=== PATIENT | female | born 1985 | race Caucasian/White ===

== ENCOUNTER 2018-10-30 09:41 | Emergency (ER) | payer MEDICAID ==
[~2018-10-30] VITALS: Ht 165.1 cm; Wt 67.6 kg
[~2018-10-30 09:41] MED LIST: AZIT250T6 PO; GENT5DRO3 LEFTEYE; PRED20TA PO; PROM118S5 PO
[2018-10-30] MEDS ORDERED: ONDANSETRON ODT 4 MG TAB.RAPDIS ONE (09:50)
[2018-10-30] MEDS ORDERED: ONDANSETRON ODT 4 MG TAB.RAPDIS PO ONE ×2 (10:00)
--- NOTE | 2018-10-30 10:17 | PHYS DOC ---
Past History Past Medical History: Anxiety, Asthma, Bipolar, Depression Past Surgical History: Other Additional Past Surgical Histo: D&C Smoking: Cigarettes Alcohol Use: None Drug Use: None Adult General Chief Complaint Chief Complaint: VOMITING IN HPI HPI Patient is a 32-year-old female presents with nausea and vomiting that began at approximately 3:00 this morning. Patient is presently 16 weeks . She ran out of her Zofran 2 days ago. She is also supposed to be taking antibiotics for urinary tract infection but has not yet these up. She denies any fever or dysuria. Denies any back or flank pain. No blood in the emesis.[] Review of Systems Review of Systems Constitutional: Denies fever or chills [] Eyes: Denies change in visual acuity, redness, or eye pain [] HENT: Denies nasal congestion or sore throat [] Respiratory: Denies cough or shortness of breath [] Cardiovascular: No chest pain or palpitations[] GI: Denies diarrhea , see history of present illness[] : Denies dysuria or hematuria [] Musculoskeletal: Denies back pain or joint pain [] Integument: Denies rash or skin lesions [] Neurologic: Denies headache, focal weakness or sensory changes [] Endocrine: Denies polyuria or polydipsia [] All other systems were reviewed and found to be within normal limits, except as documented in this note. Current Medications Current Medications Current Medications Medications (Trade) Dose Ordered Sig/[facility] Start Time Stop Time Status Last Admin Dose Admin Ondansetron HCl (Zofran Odt) 4 mg 1X ONCE 10/30/18 10:00 10/30/18 10:02 DC Allergies Allergies Allergies Coded Allergies Type Severity Reaction Last Updated Verified No Known Drug Allergies 05/23/13 No Physical Exam Physical Exam Constitutional: Well developed, well nourished, uncomfortable, actively retching as I enter the room, non-toxic appearance. [] HENT: Normocephalic, atraumatic, bilateral external ears normal, oropharynx moist, no oral exudates, nose normal. [] Eyes: PERRLA, EOMI, conjunctiva normal, no discharge. [] Neck: Normal range of motion, no tenderness, supple, no stridor. [] Cardiovascular:Heart rate regular rhythm, no murmur [] Lungs & Thorax: Bilateral breath sounds clear to auscultation [] Abdomen: Bowel sounds normal, soft, no tenderness, no masses, no pulsatile masses. [] Skin: Warm, dry, no erythema, no rash. [] Back: No tenderness, no CVA tenderness. [] Extremities: No tenderness, no cyanosis, no clubbing, ROM intact, no edema. [] Neurologic: Alert and oriented X 3, normal motor function, normal sensory function, no focal deficits noted. [] Psychologic: Affect normal, judgement normal, mood normal. [] Current Patient Data Vital Signs Vital Signs Date Time Temp Pulse Resp B/P (MAP) Pulse Ox O2 Delivery O2 Flow Rate FiO2 10/30/18 09:50 98.3 116 20 99 Room Air EKG EKG [] Radiology/Procedures Radiology/Procedures [] Course & Med Decision Making Course & Med Decision Making Pertinent Labs and Imaging studies reviewed. (See chart for details) ED course: Patient arrived, was placed in bed, and tolerated exam well. She was given an ODT Zofran which improved her nausea and vomiting. She was oral intake tolerant. heart tones were obtained. She was able to provide a urine sample. Findings were discussed with the patient who voiced understanding. All questions were answered. She was discharged in improved condition. Medical decision making: No evidence of intractable nausea or vomiting. Patient has some bacteria in the urine and will place her on antibiotics are safe in , and will continue outpatient antiemetics therapy.[] Dragon Disclaimer Dragon Disclaimer This electronic medical record was generated, in whole or in part, using a voice recognition dictation system. Departure Departure: Impression: Primary Impression: Nausea and vomiting during Additional Impression: Bacteria in urine Disposition: 01 HOME, SELF-CARE Condition: IMPROVED Referrals: DILLON OLSON MD (PCP) Follow-up in 2 days Patient Instructions: Asymptomatic Bacteriuria, Female, Nausea and Vomiting Additional Instructions: Drink plenty of fluids, frequent small sips. No fatty foods, no milk, and no pepper for the next 48 hours. For the next 48 hours eat a diet rich in carbohydrates with foods such as bananas, rice, applesauce, and toast. Follow-up with your regular doctor in 2 days. Return to the ER if unable to tolerate liquids, blood in the emesis, or any other concerns. Scripts Ondansetron Hcl (ZOFRAN) 4 Mg Tablet 1 TAB PO Q6HRS for nausea or vomiting, #20 TAB Prov: PEACE STEPHENS DO 10/30/18 Cephalexin (KEFLEX) 500 Mg Capsule 500 MG PO TID for bacteruria for 7 Days, #21 CAP Prov: PEACE STEPHENS DO 10/30/18 Problem Qualifiers PEACE STEPHENS DO Oct 30, 2018 10:17
[2018-10-30 10:36] LABS: COLOR,URINE YELLOW
[2018-10-30 10:37] LABS: AMORPHOUS SEDIMENT,UR PRESENT /HPF; BACTERIA,URINE FEW /HPF (0-FEW); BILIRUBIN,URINE NEG (NEG); CLARITY,URINE CLOUDY; GLUCOSE,URINE NEG (NEG); NITRITE,URINE NEG (NEG); SQUAMOUS EPITHELIAL CELL,UR FEW /LPF; UROBILINOGEN,URINE 0.2 mg/dL (0.2 mg/dL)
[2018-10-30] MEDS ORDERED: CEPH-264 PO (10:43)
[2018-10-30] MEDS ORDERED: ONDA4TAB7 PO (10:43)
[2018-10-30 10:47] VITALS: BP 127/72
== END 2018-10-30 10:47 | disposition home or self-care (01) ==
LOC: ER 09:41
DX: O21.9 Vomiting of pregnancy, unspecified (principal); O99.342 Other mental disorders complicating pregnancy, second trimester; O99.512 Diseases of the respiratory system complicating pregnancy, second trimester; F41.9 Anxiety disorder, unspecified; F31.9 Bipolar disorder, unspecified; O99.332 Smoking (tobacco) complicating pregnancy, second trimester; Z3A.16 16 weeks gestation of pregnancy
CPT/HCPCS: 81001; 99283; Q0162

== ENCOUNTER 2018-12-05 16:51 | Emergency (ER) | payer MEDICAID ==
[~2018-12-05 16:51] MED LIST changes: +CEPH-264 PO; +ONDA4TAB7 PO
[2018-12-05] MEDS ORDERED: IV NORMAL SALINE 1,000ML 1,000 ML IV ONE (17:30)
[2018-12-05] MEDS ORDERED: ONDANSETRON PF 4 MG/2 ML VIAL. IV ONE (17:30)
[2018-12-05] MEDS ORDERED: PROCHLORPERAZINE 10 MG/2 ML VIAL. IV ONE (17:45)
[2018-12-05] MEDS ORDERED: diphenhydrAMINE 50 MG/ML VIAL IVP ONE (17:45)
[2018-12-05 17:56] LABS: BASO # 0.1 x10^3/uL (0.0-0.2); BASO % 1 % (0-3); EOS % 0 % (0-3); HEMATOCRIT 37.5 % (36.0-47.0); HEMOGLOBIN 13.1 g/dL (12.0-15.5); LYMPH # 2.5 x10^3/uL (1.0-4.8); LYMPH % 14 % (24-48); MEAN CORPUSCULAR HEMOGLOBIN 33 pg (25-35); MEAN CORPUSCULAR HGB CONC 35 g/dL (31-37); MEAN CORPUSCULAR VOLUME 94 fL (79-100); MONO # 0.7 x10^3/uL (0.0-1.1); MONO % 4 % (0-9); NEUT # 14.3 x10^3uL (1.8-7.7); NEUT % 81 % (31-73); PLATELET COUNT 308 x10^3/uL (140-400); RED CELL DISTRIBUTION WIDTH 13.1 % (11.5-14.5); WHITE BLOOD COUNT 17.6 x10^3/uL (4.0-11.0)
[2018-12-05 18:13] LABS: BILIRUBIN,URINE SMALL (NEG); CLARITY,URINE HAZY; COLOR,URINE AMBER; GLUCOSE,URINE NEG (NEG)
[2018-12-05 18:14] LABS: BACTERIA,URINE FEW /HPF (0-FEW); NITRITE,URINE NEG (NEG); SQUAMOUS EPITHELIAL CELL,UR FEW /LPF; UROBILINOGEN,URINE 1 mg/dL (0.2 mg/dL)
[2018-12-05 18:15] LABS: GRANULAR CASTS,URINE FEW /HPF; HYALINE CASTS, URINE OCC /HPF
[2018-12-05 18:20] LABS: AMPHETAMINE/METHAMPHETAMINE NEG (NEG); BARBITURATES NEG (NEG); BENZODIAZEPINES NEG (NEG); CANNABINOIDS NEG (NEG); COCAINE NEG (NEG); METHADONE NEG (NEG); OPIATES NEG (NEG); PHENCYCLIDINE NEG (NEG)
[2018-12-05 18:53] LABS: ALBUMIN 3.7 g/dL (3.4-5.0); ALBUMIN/GLOBULIN RATIO 1.1 (1.0-1.7); CALCIUM 8.6 mg/dL (8.5-10.1); CREATININE 0.6 mg/dL (0.6-1.0); GFR 116.6; POTASSIUM 3.2 mmol/L (3.5-5.1); TOTAL BILIRUBIN 0.5 mg/dL (0.2-1.0); TOTAL PROTEIN 7.1 g/dL (6.4-8.2)
[2018-12-05] MEDS ORDERED: cefTRIAXone SODIUM 1 GM VIAL ONE (19:28)
[2018-12-05] MEDS ORDERED: IV NORMAL SALINE 50ML 50 ML ONE (19:28)
[2018-12-05 20:05] LABS: % BANDS 7 % (0-9); % SEGS 81 % (35-66)
[2018-12-05 20:06] LABS: % LYMPHS 9 % (24-48); % MONOS 3 % (0-10); PLT ESTIMATE ADEQUATE (ADEQUATE)
[2018-12-05] MEDS ORDERED: CEPH500C PO (21:31)
[2018-12-05 21:35] VITALS: BP 94/44
--- NOTE | 2018-12-05 21:37 | PHYS DOC ---
Past History Past Medical History: Asthma, Depression, Other Additional Past Medical Histor: PTSD Past Surgical History: Other Additional Past Surgical Histo: D&C Smoking: Cigarettes Alcohol Use: None Drug Use: None Adult General Chief Complaint Chief Complaint: VOMITING IN HPI HPI Patient is a 33-year-old female presenting with nausea and vomiting. Really no abdominal pain just has been vomiting for for 5 days she's had this issue on after she had been off Zoloft for 2 weeks she took it again today at the advice of her mother that she vomited 5 times in a row she thinks it's from that. No fever she is approximately 20 weeks she said that is no lower abdominal pain there is no vaginal bleeding there is no question of fluid. Review of Systems Review of Systems Constitutional: Denies fever or chills [] Eyes: Denies change in visual acuity, redness, or eye pain [] HENT: Denies nasal congestion or sore throat [] Respiratory: Denies cough or shortness of breath [] Cardiovascular: No additional information not addressed in HPI [] GI: She did also have some diarrhea earlier had been constipated previous to that Integument: Denies rash or skin lesions [] Neurologic: Denies headache, focal weakness or sensory changes [] Endocrine: Denies polyuria or polydipsia [] All other systems were reviewed and found to be within normal limits, except as documented in this note. Current Medications Current Medications Current Medications Medications (Trade) Dose Ordered Sig/[facility] Start Time Stop Time Status Last Admin Dose Admin Ceftriaxone Sodium 1 gm/ Sodium Chloride 50 ml @ 100 mls/hr 1X ONCE 12/05/18 19:30 12/05/18 20:00 DC 12/05/18 19:31 100 MLS/HR Ceftriaxone Sodium (Rocephin) 1 gm STK-MED ONCE 12/05/18 19:28 12/05/18 19:29 DC Diphenhydramine HCl (Benadryl) 25 mg 1X ONCE 12/05/18 17:45 12/05/18 17:46 DC 12/05/18 17:45 25 MG Lorazepam (Ativan Inj) 1 mg 1X ONCE 12/05/18 18:30 12/05/18 18:34 DC 12/05/18 18:20 1 MG Ondansetron HCl (Zofran) 4 mg 1X ONCE 12/05/18 17:30 12/05/18 17:31 DC Prochlorperazine Edisylate (Compazine) 10 mg 1X ONCE 12/05/18 17:45 12/05/18 17:46 DC 12/05/18 17:48 10 MG Sodium Chloride 50 ml @ As Directed STK-MED ONCE 12/05/18 19:28 12/05/18 19:29 DC Allergies Allergies Allergies Coded Allergies Type Severity Reaction Last Updated Verified No Known Drug Allergies 05/23/13 No Physical Exam Physical Exam Constitutional: Well developed, well nourished, no acute distress, non-toxic appearance. [] HENT: Normocephalic, atraumatic, bilateral external ears normal, oropharynx dry, no oral exudates, nose normal. [] Eyes: PERRLA, EOMI, conjunctiva normal, no discharge. [] Neck: Normal range of motion, no tenderness, supple, no stridor. [] Cardiovascular:Heart rate regular rhythm, no murmur [] Lungs & Thorax: Bilateral breath sounds clear to auscultation [] Abdomen: Bowel sounds normal, soft, no tenderness, no masses, no pulsatile masses. [] Gravid but nontender Skin: Warm, dry, no erythema, no rash. [] Back: No tenderness, no CVA tenderness. [] Extremities: No tenderness, no cyanosis, no clubbing, ROM intact, no edema. [] Neurologic: Alert and oriented X 3, normal motor function, normal sensory function, no focal deficits noted. [] Psychologic: Affect normal, judgement normal, mood normal. [] Current Patient Data Vital Signs Vital Signs Date Time Temp Pulse Resp B/P (MAP) Pulse Ox O2 Delivery O2 Flow Rate FiO2 12/05/18 20:24 87 18 100/37 (58) 97 Room Air 12/05/18 16:56 98.3 * Moderate Temperature (Fahrenheit): * 98.3 degrees F (97.6-99.5) Patient Temperature * 98.3 degrees F (97.5-99.5) Temperature Source * Oral Blood Pressure Systolic * 133 mm Hg (100-140) Blood Pressure Diastolic * 74 mm Hg (60-100) Blood Pressure Mean * 93 mm Hg Pulse Rate * 60 beats per minute (60-90) Pulse Assessment Method * Monitor Respiratory Rate * 18 breaths per minute (12-24) Oxygen Delivery Method * Room Air Bedside Pulse Oximetry Lab Results Laboratory Tests Test 12/05/18 17:30 12/05/18 17:40 12/05/18 18:05 Urine Collection Type Void Urine Color Radha Urine Clarity Hazy Urine pH 6.0 Urine Specific Moss >=1.030 Urine Protein 100 mg/dl (NEG-TRACE) Urine Glucose (UA) Neg mg/dL (NEG) Urine Ketones (Stick) >=160 mg/dL (NEG) Urine Blood Small (NEG) Urine Nitrite Neg (NEG) Urine Bilirubin Small (NEG) Urine Urobilinogen Dipstick 1 mg/dL (0.2 mg/dL) Urine Leukocyte Esterase Neg (NEG) Urine RBC 3-5 /HPF (0-2) Urine WBC 5-10 /HPF (0-4) Urine Squamous Epithelial Cells Few /LPF Urine Transitional Epithelial Cells Few /LPF Urine Bacteria Few /HPF (0-FEW) Urine Hyaline Casts Occ /HPF Urine Granular Casts Few /HPF Urine Mucus Marked /LPF Urine Opiates Screen Neg (NEG) Urine Methadone Screen Neg (NEG) Urine Barbiturates Neg (NEG) Urine Phencyclidine Screen Neg (NEG) Urine Amphetamine/Methamphetamine Neg (NEG) Urine Benzodiazepines Screen Neg (NEG) Urine Cocaine Screen Neg (NEG) Urine Cannabinoids Screen Neg (NEG) Urine Ethyl Alcohol Neg (NEG) White Blood Count 17.6 x10^3/uL (4.0-11.0) H Red Blood Count 4.00 x10^6/uL (3.50-5.40) Hemoglobin 13.1 g/dL (12.0-15.5) Hematocrit 37.5 % (36.0-47.0) Mean Corpuscular Volume 94 fL (79-100) Mean Corpuscular Hemoglobin 33 pg (25-35) Mean Corpuscular Hemoglobin Concent 35 g/dL (31-37) Red Cell Distribution Width 13.1 % (11.5-14.5) Platelet Count 308 x10^3/uL (140-400) Neutrophils (%) (Auto) 81 % (31-73) H Lymphocytes (%) (Auto) 14 % (24-48) L Monocytes (%) (Auto) 4 % (0-9) Eosinophils (%) (Auto) 0 % (0-3) Basophils (%) (Auto) 1 % (0-3) Neutrophils # (Auto) 14.3 x10^3uL (1.8-7.7) H Lymphocytes # (Auto) 2.5 x10^3/uL (1.0-4.8) Monocytes # (Auto) 0.7 x10^3/uL (0.0-1.1) Eosinophils # (Auto) 0.0 x10^3/uL (0.0-0.7) Basophils # (Auto) 0.1 x10^3/uL (0.0-0.2) Segmented Neutrophils % 81 % (35-66) H Band Neutrophils % 7 % (0-9) Lymphocytes % 9 % (24-48) L Monocytes % 3 % (0-10) Platelet Estimate Adequate (ADEQUATE) Sodium Level 140 mmol/L (136-145) Potassium Level 3.2 mmol/L (3.5-5.1) L Chloride Level 103 mmol/L (98-107) Carbon Dioxide Level 24 mmol/L (21-32) Anion Gap 13 (6-14) Blood Urea Nitrogen 5 mg/dL (7-20) L Creatinine 0.6 mg/dL (0.6-1.0) Estimated GFR (Cockcroft-Gault) 116.6 BUN/Creatinine Ratio 8 (6-20) Glucose Level 110 mg/dL (70-99) H Calcium Level 8.6 mg/dL (8.5-10.1) Total Bilirubin 0.5 mg/dL (0.2-1.0) Aspartate Amino Transferase (AST) 15 U/L (15-37) Alanine Aminotransferase (ALT) 16 U/L (14-59) Alkaline Phosphatase 42 U/L (46-116) L Total Protein 7.1 g/dL (6.4-8.2) Albumin 3.7 g/dL (3.4-5.0) Albumin/Globulin Ratio 1.1 (1.0-1.7) Lipase 79 U/L (73-393) EKG EKG [] Radiology/Procedures Radiology/Procedures [] Impressions: Wet rate ultrasound report no acute finding. Course & Med Decision Making Course & Med Decision Making Pertinent Labs and Imaging studies reviewed. (See chart for details) []33-year-old female with a psychiatric history who is 20 weeks who is presenting with nausea and vomiting 5 episode she was actively vomiting in the emergency room having very loud vomiting with little output almost psychogenic in some way based on my previous experience however white count was 17.6 this could be D margination from the vomiting we did an extensive workup urinalysis did show 5-10 white blood cells perhaps there is the beginnings of a UTI would give ceftriaxone as well as Keflex for that and we did a right upper quadrant ultrasound on abundance of caution that was essentially negative acute patient is to go home and continue Zofran and follow up with primary social worker school I give her strict return impressions to come back to the emergency room within 12-24 hours for any migrating or new pain. Dragon Disclaimer Dragon Disclaimer This electronic medical record was generated, in whole or in part, using a voice recognition dictation system. Departure Departure: Impression: Primary Impression: Urinary tract infection Disposition: 01 HOME, SELF-CARE Condition: STABLE Patient Instructions: Nausea and Vomiting, [id number] Scripts Cephalexin (CEPHALEXIN) 500 Mg Capsule 1 CAP PO QID for uti, #40 CAP Prov: CHARLY BUCK MD 12/05/18 CHARLY BUCK MD Dec 05, 2018 21:37
--- NOTE | 2018-12-05 21:39 | RAD ---
Exam: Ultrasound abdomen limited Indication: Vomiting, nausea, abdominal pain Technique: Real-time grayscale and color Doppler images of the right upper quadrant were obtained by the department human services worker. Comparisons: None FINDINGS: Liver demonstrates homogenous echotexture. Hepatopedal flow is noted within the portal vein. Gallbladder has a normal sonographic appearance without gallstones. No gallbladder wall thickening, pericholecystic fluid or sonographic Benz's sign. Right kidney measures 11.7 cm in length. No hydronephrosis. Visualized portions of the IVC, aorta and pancreas are unremarkable. IMPRESSION: 1. Normal sonographic appearance of the gallbladder. No evidence for acute cholecystitis. 2. No right-sided hydronephrosis. 3. Normal sonographic appearance of the liver Electronically signed by: Florentino Jovel MD (12/05/2018 9:36 PM) [id number]
== END 2018-12-05 21:35 | disposition home or self-care (01) ==
LOC: ER 16:51
DX: O23.42 Unspecified infection of urinary tract in pregnancy, second trimester (principal); R19.7 Diarrhea, unspecified; O99.512 Diseases of the respiratory system complicating pregnancy, second trimester; J45.909 Unspecified asthma, uncomplicated; O99.332 Smoking (tobacco) complicating pregnancy, second trimester; Z3A.20 20 weeks gestation of pregnancy
CPT/HCPCS: 36415; 76705; 80053; 80307; 81001; 83690; 85007; 85025; 87086; 96361; 96365; 96375; 99285; J0696; J0780; J1200; J2060; J7030

== ENCOUNTER 2019-02-25 13:53 | Emergency (ER) | payer MEDICAID ==
[~2019-02-25 13:53] MED LIST changes: +CEPH500C PO
== END 2019-02-25 14:28 | disposition home or self-care (01) ==
LOC: ER 13:53
DX: O26.899 Other specified pregnancy related conditions, unspecified trimester (principal); R10.9 Unspecified abdominal pain; Z3A.00 Weeks of gestation of pregnancy not specified; Z53.21 Procedure and treatment not carried out due to patient leaving prior to being seen by health care provider

== ENCOUNTER 2019-11-15 12:33 | Emergency (ER) | payer MEDICAID ==
[~2019-11-15] VITALS: Ht 162.6 cm; Wt 65.5 kg
[2019-11-15] MEDS ORDERED: PRED50TA PO (14:06)
[2019-11-15] MEDS ORDERED: AMOX875T PO (14:06)
--- NOTE | 2019-11-15 14:06 | PHYS DOC ---
Past History Past Medical History: No Pertinent History Additional Past Medical Histor: PTSD Past Surgical History: Tubal ligation Additional Past Surgical Histo: D&C Smoking: Cigarettes Alcohol Use: None Drug Use: None Adult General Chief Complaint Chief Complaint: SORE THROAT HPI HPI Patient is a 33-year-old female who presents to the emergency room complaining of a sore throat, body aches, fever. This started this morning. Her daughter had strep throat last week. She generally feels unwell. She states that the throat is an achy feeling. She a is swallowing without difficulty though it is painful. She states there is no possibility of . Review of Systems Review of Systems General: Reports fever, chills, sweats, fatigue Eyes: Denies drainage, blurred vision, eye redness HENT: Denies rhinorrhea, earache. Reports sore throat Respiratory: Denies cough, shortness of breath, wheezing Cardiac: Denies edema, palpitations, chest pain GI: Denies abdominal pain, Nausea, vomiting MSK: Denies back pain, neck pain Skin: Denies rash, jaundice Neuro: Denies headache, dizziness Psychiatric: Denies SI/HI Allergies Allergies Allergies Coded Allergies Type Severity Reaction Last Updated Verified No Known Drug Allergies 05/23/13 No Physical Exam Physical Exam General: Awake, alert, NAD. Well Nourished, well hydrated. Cooperative HEENT: Atraumatic, EOMI, PERRL, airway patent, moist oral mucosa, bilateral tonsillar swelling Neck: Supple, trachea midline Respiratory: CTA bilaterally, normal effort, no wheezing/crackles CV: RRR, no murmur, cap refill <2 GI: Soft, nondistended, nontender, no masses MSK: No obvious deformities Skin: Warm, dry, intact Neuro: A&O x3, speech NL, sensory and motor grossly intact, no focal deficits Psych: Normal affect, normal mood, not suicidal or homicidal Current Patient Data Vital Signs Vital Signs Date Time Temp Pulse Resp B/P (MAP) Pulse Ox O2 Delivery O2 Flow Rate FiO2 11/15/19 12:50 98.7 102 18 113/60 (77) 100 Room Air EKG EKG [] Radiology/Procedures Radiology/Procedures [] Course & Med Decision Making Course & Med Decision Making Pertinent Labs and Imaging studies reviewed. (See chart for details) Patient is a 33-year-old female who presents to the emergency room complaining of sore throat, fever, body aches. Strep swab was done and is positive. Patient will be started on Ambien antibiotics and given steroids. Patient's test results and vitals while in the ED were fully reviewed and discussed with the patient. Patient is stable and at this time does not need admission to the hospital. We have discussed strict return precautions and the importance of following up with their Primary Care Physician. Patient stated understanding and was given an opportunity to ask any questions. Patient is in agreement with plan. Dragon Disclaimer Dragon Disclaimer This electronic medical record was generated, in whole or in part, using a voice recognition dictation system. Departure Departure: Impression: Primary Impression: Strep throat Disposition: HOME/RESIDENCE PRIOR TO ADM Condition: STABLE Referrals: PCP,ROCIO (PCP) Patient Instructions: Strep Throat Scripts Prednisone (PREDNISONE) 50 Mg Tablet 1 TAB PO DAILY for strep, #4 TAB You received this medication in the emergency room today. You will starting your next dose tomorrow. Prov: LANIE GUERRERO MD 11/15/19 Amoxicillin (AMOXICILLIN) 875 Mg Tablet 1 TAB PO BID for strep, #14 TAB Prov: LANIE GUERRERO MD 11/15/19 LANIE GUERRERO MD Nov 15, 2019 14:06
[2019-11-15] MEDS ORDERED: DEXAMETHASONE SOD PHOS 10 MG/ML VIAL. PO ONE (14:15)
[2019-11-15] MEDS ORDERED: DEXAMETHASONE SOD PHOS 10 MG/ML VIAL. ONE (14:24)
[2019-11-15 14:30] VITALS: BP 118/58
== END 2019-11-15 14:33 | disposition home or self-care (01) ==
LOC: ER 12:33
DX: J02.0 Streptococcal pharyngitis (principal); M79.10 Myalgia, unspecified site; F17.210 Nicotine dependence, cigarettes, uncomplicated
CPT/HCPCS: 87880; 99283; J1100

== ENCOUNTER 2020-07-21 15:13 | Emergency (ER) | payer MEDICAID ==
[~2020-07-21] VITALS: Ht 162.6 cm; Wt 65.5 kg
[2020-07-21 15:13] VITALS: BP 119/60
[~2020-07-21 15:13] MED LIST changes: +AMOX875T PO; +PRED50TA PO
--- NOTE | 2020-07-21 15:43 | RAD ---
Three-view right shoulder dated 07/21/2020. No comparison available. Clinical data indication: Pain after injury. FINDINGS: 3 views the right shoulder show normal bony alignment. No displaced fracture. No periostitis or bone destruction. No acute osseous or articular abnormality. IMPRESSION: No acute radiographic abnormality. Electronically signed by: Benjamin Boateng MD (07/21/2020 3:40 PM) [id number]
--- NOTE | 2020-07-21 15:54 | PHYS DOC ---
Past History Past Medical History: Asthma Additional Past Medical Histor: PTSD Past Surgical History: Tubal ligation Additional Past Surgical Histo: D&C Smoking: Cigarettes Alcohol Use: Occasionally Drug Use: None General Adult EDM: Chief Complaint: SHOULDER INJURY HPI: HPI: 34-year-old female presents with right anterior shoulder pain. Patient was sitting on the toilet when she thought she saw a snake she jumped up and ran into the bathroom wall. She struck the corner of the wall on her right anterior shoulder. She wants to make sure is not broken. She is able to move her arm but it is a little bit uncomfortable. She has no other complaints at this time. Review of Systems: Review of Systems: Constitutional: Denies fever or chills Eyes: Denies change in visual acuity HENT: Denies nasal congestion or sore throat Respiratory: Denies cough or shortness of breath Cardiovascular: Denies chest pain or edema GI: Denies abdominal pain, nausea, vomiting, bloody stools or diarrhea : Denies dysuria Musculoskeletal: Right shoulder pain Integument: Denies rash Neurologic: Denies headache, focal weakness or sensory changes Endocrine: Denies polyuria or polydipsia Lymphatic: Denies swollen glands Psychiatric: Denies depression or anxiety Allergies: Allergies: Allergies Coded Allergies Type Severity Reaction Last Updated Verified No Known Drug Allergies 05/23/13 No Physical Exam: PE: Constitutional: Well developed, well nourished, no acute distress, non-toxic appearance. [] HENT: Normocephalic, atraumatic, bilateral external ears normal, oropharynx moist, no oral exudates, nose normal. [] Eyes: PERRLA, EOMI, conjunctiva normal, no discharge. [] Neck: Normal range of motion, no tenderness, supple, no stridor. [] Cardiovascular: Heart rate regular rhythm, no murmur [] Lungs & Thorax: Bilateral breath sounds clear to auscultation [] Abdomen: Bowel sounds normal, soft, no tenderness, no masses, no pulsatile masses. [] Skin: Warm, dry, no erythema, no rash. [] Back: No tenderness, no CVA tenderness. [] Extremities: Mild anterior right shoulder tenderness, normal range of motion. [] Neurologic: Alert and oriented X 3, normal motor function, normal sensory function, no focal deficits noted. [] Psychologic: Affect normal, judgement normal, mood normal. [] Current Patient Data: Vital Signs: Vital Signs Date Time Temp Pulse Resp B/P (MAP) Pulse Ox O2 Delivery O2 Flow Rate FiO2 07/21/20 15:13 97.9 52 14 119/60 (79) 100 Room Air EKG: EKG: [] Radiology/Procedures: Radiology/Procedures: [] Impressions: Three-view right shoulder dated 07/21/2020. No comparison available. Clinical data indication: Pain after injury. FINDINGS: 3 views the right shoulder show normal bony alignment. No displaced fracture. No periostitis or bone destruction. No acute osseous or articular abnormality. IMPRESSION: No acute radiographic abnormality. Electronically signed by: Myra Boateng MD (07/21/2020 3:40 PM) [id number] DICTATED AND SIGNED BY: MYRA BOATENG MD DATE: 07/21/20 1540 CC: SOO MELENDEZ DO; PCP,NO ~MTH0 0 Heart Score: C/O Chest Pain: N/A Risk Factors: Risk Factors: DM, Current or recent (<one month) smoker, HTN, HLP, family history of CAD, obesity. Risk Scores: Score 0 - 3: 2.5% MACE over next 6 weeks - Discharge Home Score 4 - 6: 20.3% MACE over next 6 weeks - Admit for Clinical Observation Score 7 - 10: 72.7% MACE over next 6 weeks - Early Invasive Strategies Course & Med Decision Making: Course & Med Decision Making Pertinent Labs and Imaging studies reviewed. (See chart for details) The patient's x-ray is negative for fracture or other significant findings. I believe she just has a bruise. She is stable for discharge at this time. [] Dragon Disclaimer: Dragon Disclaimer: This electronic medical record was generated, in whole or in part, using a voice recognition dictation system. Departure Departure: Impression: Primary Impression: Shoulder pain, right Disposition: HOME / SELF CARE / HOMELESS Condition: STABLE Referrals: PCP,NO (PCP) Patient Instructions: Shoulder Pain, [id number] SOO MELENDEZ DO Jul 21, 2020 15:54
== END 2020-07-21 16:01 | disposition home or self-care (01) ==
LOC: ER 15:13
DX: M25.511 Pain in right shoulder (principal); J45.909 Unspecified asthma, uncomplicated; F43.10 Post-traumatic stress disorder, unspecified; F17.210 Nicotine dependence, cigarettes, uncomplicated
CPT/HCPCS: 73030; 99283

== ENCOUNTER 2021-03-10 13:43 | Emergency (ER) | payer MEDICAID ==
[~2021-03-10] VITALS: Ht 162.6 cm; Wt 61.4 kg
--- NOTE | 2021-03-10 14:31 | PHYS DOC ---
Past History Past Medical History: Asthma Additional Past Medical Histor: PTSD Past Surgical History: Tubal ligation Additional Past Surgical Histo: D&C Smoking: Cigarettes Alcohol Use: Occasionally Drug Use: None General Adult EDM: Chief Complaint: CONGESTION HPI: HPI: 35-year-old female presents with cough, congestion, fatigue, body aches. She is not vaccinated against COVID-19. She has had the symptoms for about 3 days. She has not measured a fever at home. The patient has a history of mild intermittent asthma but has not used an inhaler in some time. She feels mildly short of breath. Review of Systems: Review of Systems: Constitutional: Denies fever or chills. Body aches, fatigue. Eyes: Denies change in visual acuity HENT: Denies nasal congestion or sore throat Respiratory: Mild shortness of breath Cardiovascular: Denies chest pain or edema GI: Denies abdominal pain, nausea, vomiting, bloody stools or diarrhea : Denies dysuria Musculoskeletal: Denies back pain or joint pain Integument: Denies rash Neurologic: Denies headache, focal weakness or sensory changes Endocrine: Denies polyuria or polydipsia Lymphatic: Denies swollen glands Psychiatric: Denies depression or anxiety Allergies: Allergies: Allergies Coded Allergies Type Severity Reaction Last Updated Verified No Known Drug Allergies 05/23/13 No Physical Exam: PE: Constitutional: Well developed, well nourished, no acute distress, non-toxic appearance. [] HENT: Normocephalic, atraumatic, bilateral external ears normal, oropharynx moist, no oral exudates, nose normal. [] Eyes: PERRLA, EOMI, conjunctiva normal, no discharge. [] Neck: Normal range of motion, no tenderness, supple, no stridor. [] Cardiovascular: Heart rate regular rhythm, no murmur [] Lungs & Thorax: Bilateral breath sounds clear to auscultation [] Abdomen: Bowel sounds normal, soft, no tenderness, no masses, no pulsatile masses. [] Skin: Warm, dry, no erythema, no rash. [] Back: No tenderness, no CVA tenderness. [] Extremities: No tenderness, no cyanosis, no clubbing, ROM intact, no edema. [] Neurologic: Alert and oriented X 3, normal motor function, normal sensory function, no focal deficits noted. [] Psychologic: Affect normal, judgement normal, mood normal. [] EKG: EKG: [] Radiology/Procedures: Radiology/Procedures: [] Heart Score: C/O Chest Pain: N/A Risk Factors: Risk Factors: DM, Current or recent (<one month) smoker, HTN, HLP, family history of CAD, obesity. Risk Scores: Score 0 - 3: 2.5% MACE over next 6 weeks - Discharge Home Score 4 - 6: 20.3% MACE over next 6 weeks - Admit for Clinical Observation Score 7 - 10: 72.7% MACE over next 6 weeks - Early Invasive Strategies Course & Med Decision Making: Course & Med Decision Making Pertinent Labs and Imaging studies reviewed. (See chart for details) The patient's lung sounds are normal. She is not wheezing. I will go ahead and give her an albuterol inhaler as this may help with her symptoms and help prevent exacerbation of her asthma. Chest x-ray is negative for acute findings. The patient's rapid flu and influenza are negative. I am still highly suspi cious this is COVID-19. I have made the patient aware. I have discussed isolation of the commendations. She is stable for discharge at this time. [] Dragon Disclaimer: Dragon Disclaimer: This electronic medical record was generated, in whole or in part, using a voice recognition dictation system. Departure Departure: Impression: Primary Impression: COVID-19 Disposition: 01 HOME / SELF CARE / HOMELESS Condition: STABLE Referrals: PCP,NO (PCP) Patient Instructions: Viral Syndrome Additional Instructions: You have been tested for or diagnosed with COVID-19. It is an infection caused by a new type of coronavirus. COVID-19 will cause cold-like or mild flu symptoms in most. It can cause more severe symptoms like problems breathing in some. There is no treatment for COVID-19. The body will clear the infection over time. Self-care will help to ease discomfort. Steps to Take: Self-Care Rest as needed. Healthy habits may help you feel better. Steps include: Choose healthy foods including fruits and vegetables. Drink water throughout the day. Get plenty of sleep each night. If you smoke, try to quit. It may ease breathing. Avoid alcohol. Keep Others Healthy The virus can spread to others. Droplets are released every time you sneeze or cough. The droplets can get into the mouth, nose, or eyes of people near you and lead to infection. To lower the chances of spreading COVID-19 to others: Stay at home until your doctor has said it is safe to leave. If you tested positive this will mean staying isolated until both of the following are true: At least 7 days have passed since the start of illness. You are free of fever for at least 72 hours without the use of medicine. During this time: - Avoid public areas, events, or transportation. Do not return to work or school until your doctor has said it is safe to do so. - Call ahead if you need to go to a medical center. Let them know you may have COVID-19. It will help them guide you where to go. They may also ask you to wear a facemask when you come to the office. - If you call for emergency medical services, let them know you may have COVID- 19. While at home: - Try to avoid close contact with others. Stay about 6 feet away. - If possible, spend most of your time in a separate room from others. - Use a face mask if you will be in close contact with others such as sharing a room or vehicle. - Have someone wipe down common surfaces in the home. Use household [employer] on areas like doorknobs, counters, or sinks. - Cough or sneeze into a tissue. Throw the tissue away right after use. If a tissue is not available, cough or sneeze into your elbow. - Wash your hands often. Wash them after sneezing or coughing. Use soap and water and wash for at least 20 seconds. Alcohol based hand lamp cleaner can be used if soap and water is not available. - Do not prepare food for others. Avoid sharing personal items like forks, spoons, or toothbrushes. - Avoid close contact with pets while you are sick. There is no evidence of the virus passing to pets. This is a safety step until more is known about this virus. Isolation can be frustrating. Social interaction can help. Keep in touch with friends and family through phone and tech options. You can still interact with others in your home, just keep a safe distance of about 6 feet. Follow-up: Your doctors office will check in with you to see if there are any changes in your health. You may be asked to keep track of symptoms to share with them. They will also let you know when you are clear to be in public again. Problems to Look Out For: Contact your doctor if your recovery is not going as you expect. Get emergency care if you have problems such as: - Trouble breathing - Nonstop chest pain or pressure - Changes in awareness, confusion, or problems waking - Lips or face have bluish color - Worsening of symptoms If you think you have an emergency, call for emergency medical services right away. As taken from [facility] SOO MELENDEZ DO Mar 10, 2021 14:31
--- NOTE | 2021-03-10 14:35 | RAD ---
EXAM: Chest, single view. HISTORY: Shortness of breath. Covid 19. COMPARISON: None. FINDINGS: A frontal view of the chest is obtained. There is no infiltrate, pleural effusion or pneumo thorax. There is right suprahilar prominence likely due to prominent central pulmonary vessels. IMPRESSION: No acute pulmonary finding. Electronically signed by: Nicole Matthew MD (03/10/2021 2:32 PM) [id number]
[2021-03-10 14:39] LABS: INFLUENZA A PATIENT NEGATIVE (NEGATIVE); INFLUENZA B PATIENT NEGATIVE (NEGATIVE)
[2021-03-10 15:10] VITALS: BP 107/59
== END 2021-03-10 15:10 | disposition home or self-care (01) ==
LOC: ER 13:43
DX: U07.1 COVID-19 (principal); J45.909 Unspecified asthma, uncomplicated; F17.210 Nicotine dependence, cigarettes, uncomplicated
CPT/HCPCS: 71045; 87428; 99284